=== PATIENT | male | born 1985 | race African-American/Black ===

== ENCOUNTER 2021-04-24 12:35 | Emergency (ER) | payer MEDICAID ==
[~2021-04-24] VITALS: Ht 175.3 cm; Wt 90.1 kg
[2021-04-24] MEDS ORDERED: MOTRIN400 MG/TAB PO (14:18)
[2021-04-24] MEDS ORDERED: VOLTAREN1%GEL TOP (14:18)
[2021-04-24 14:20] VITALS: BP 131/62
== END 2021-04-24 14:22 | disposition home or self-care (01) ==
LOC: ED 12:35
DX: M25.511 Pain in right shoulder (principal); M25.562 Pain in left knee; K21.9 Gastro-esophageal reflux disease without esophagitis

== ENCOUNTER 2021-05-30 14:36 | Emergency (ER) | payer MEDICAID ==
[~2021-05-30] VITALS: Ht 175.3 cm; Wt 90.1 kg
[~2021-05-30 14:36] MED LIST: MOTRIN400 MG/TAB PO; VOLTAREN1%GEL TOP
[2021-05-30 15:43] LABS: HEMATOCRIT 40.3 % (39.0-50.0); HEMOGLOBIN 13.7 g/dl (14.0-18.0); MEAN CELL VOLUME 78.9 fL CALC (80.0-100.0); MEAN CORPUSCULAR HGB 26.8 pG CALC (26.0-32.0); NEUT# 2.08 thou/uL (1.82-7.42); RED BLOOD COUNT 5.11 mill/uL (4.70-6.10); RED CELL DISTRI WIDTH 14.3 % (11.5-15.5)
[2021-05-30 15:59] LABS: ALKALINE PHOSPHATASE 75 u/l (38-126); ANION GAP 10 (6-22 (CALC)); BILIRUBIN, TOTAL 0.3 mg/dL (0.0-1.4); BUN 17 mg/dL (9-20); BUN/CREATININE RATIO 17 (12-20 (CALC)); CARBON DIOXIDE 29 mmol/l (22-30); CHLORIDE 105 mmol/l (95-108); GFR > 60 ML/MIN (>=60 (CALC)); GFR FOR AFR.AMER. > 60 ML/MIN (>=60 (CALC)); POTASSIUM 3.5 mmol/l (3.5-5.1); SGOT/AST 36 u/l (17-59); SODIUM 140 mmol/l (137-146); TOTAL PROTEIN 7.4 g/dL (6.3-8.2)
[2021-05-30] MEDS ORDERED: ALLERGY RELF10 M3 PO (16:55)
[2021-05-30] MEDS ORDERED: PROAIR HFA108 MCG/AC PO (16:55)
[2021-05-30 17:33] VITALS: BP 119/68
== END 2021-05-30 17:33 | disposition home or self-care (01) ==
LOC: ED 14:36
PROVIDERS: Family Medicine
DX: R05.9 Cough, unspecified (principal); R13.10 Dysphagia, unspecified; K21.9 Gastro-esophageal reflux disease without esophagitis

== ENCOUNTER 2021-08-25 10:29 | Emergency (ER) | payer MEDICAID ==
[~2021-08-25] VITALS: Ht 175.3 cm; Wt 81.0 kg
[~2021-08-25 10:29] MED LIST changes: +ALLERGY RELF10 M3 PO; +PROAIR HFA108 MCG/AC PO
[2021-08-25 10:37] VITALS: BP 133/69
[2021-08-25 10:55] VITALS: BP 131/65
[2021-08-25 11:01] VITALS: BP 136/67
[2021-08-25 11:30] LABS: HEMATOCRIT 40.5 % (39.0-50.0); HEMOGLOBIN 13.8 g/dl (14.0-18.0); MEAN CELL VOLUME 77.9 fL CALC (80.0-100.0); MEAN CORPUSCULAR HGB 26.5 pG CALC (26.0-32.0); MEAN CORPUSCULAR HGB CONC 34.1 g/dL CAL (32.0-36.0); NEUT# 1.61 thou/uL (1.82-7.42); RED BLOOD COUNT 5.2 mill/uL (4.70-6.10); RED CELL DISTRI WIDTH 13.7 % (11.5-15.5)
[2021-08-25 11:31] VITALS: BP 147/78
[2021-08-25 11:43] LABS: ALBUMIN 4.2 g/dL (3.2-5.0); ALKALINE PHOSPHATASE 81 u/l (38-126); ANION GAP 10 (6-22 (CALC)); BILIRUBIN, TOTAL 0.3 mg/dL (0.0-1.4); BUN 11 mg/dL (9-20); BUN/CREATININE RATIO 12 (12-20 (CALC)); CARBON DIOXIDE 27 mmol/l (22-30); CHLORIDE 106 mmol/l (95-108); GFR > 60 ML/MIN (>=60 (CALC)); GFR FOR AFR.AMER. > 60 ML/MIN (>=60 (CALC)); LIPASE 49 u/l (23-300); MAGNESIUM 1.8 mg/dL (1.6-2.3); POTASSIUM 3.7 mmol/l (3.5-5.1); SGOT/AST 33 u/l (17-59); SODIUM 138 mmol/l (137-146); TOTAL PROTEIN 7.4 g/dL (6.3-8.2)
[2021-08-25 12:01] VITALS: BP 156/67
[2021-08-25] MEDS ORDERED: SENNA-S1 TAB PO ×2 (12:08→12:58)
[2021-08-25] MEDS ORDERED: VISTARIL25 MG PO ×2 (12:08→12:58)
[2021-08-25] MEDS ORDERED: PROVENTIL108 MCG/AC PO ×2 (12:08→12:58)
[2021-08-25 12:31] VITALS: BP 140/66
== END 2021-08-25 12:40 | disposition home or self-care (01) ==
LOC: ED 10:29
PROVIDERS: Internal Medicine
DX: M79.10 Myalgia, unspecified site (principal); K59.00 Constipation, unspecified; H57.89 Other specified disorders of eye and adnexa; R05.9 Cough, unspecified; R10.9 Unspecified abdominal pain; K21.9 Gastro-esophageal reflux disease without esophagitis